=== PATIENT | female | born 1995 | race Caucasian/White ===

== ENCOUNTER → 2023-08-14 16:23 | Outpatient (REF) | payer OTHER, SELFPAY | LOC: RAD 16:23 | PROVIDERS: ATTENDING PHYSICIAN Otolaryngology; FAMILY PHYSICIAN Internal Medicine | DX: H93.A1 Pulsatile tinnitus, right ear (principal) | CPT/HCPCS: 70496; 70498; Q9967 ==

== ENCOUNTER → 2024-10-21 16:51 | Outpatient (REF) | payer OTHER, SELFPAY | LOC: PNTC 16:51 | PROVIDERS: ATTENDING PHYSICIAN Obstetrics & Gynecology | DX: O26.849 Uterine size-date discrepancy, unspecified trimester (principal) | CPT/HCPCS: 76805 ==

== ENCOUNTER → 2024-11-10 09:13 | Outpatient (REF) | payer OTHER, SELFPAY | LOC: PNTC 09:13 | PROVIDERS: ATTENDING PHYSICIAN Obstetrics & Gynecology | DX: Z36.3 Encounter for antenatal screening for malformations (principal); O35 Maternal care for known or suspected fetal abnormality and damage; Z36.86 Encounter for antenatal screening for cervical length; Z3A.21 21 weeks gestation of pregnancy | CPT/HCPCS: 76811; 76817 ==

== ENCOUNTER 2025-03-05 07:05 | Observation (INO) | payer OTHER, SELFPAY ==
[2025-03-05 07:13] VITALS: BP 95/59; BMI 34.8
== END 2025-03-05 08:21 | disposition home or self-care (01) ==
LOC: LDRP 07:05
PROVIDERS: ADMITTING PHYSICIAN Student in an Organized Health Care Education/Training Program
DX: O36.8130 Decreased fetal movements, third trimester, not applicable or unspecified (principal); Z3A.37 37 weeks gestation of pregnancy
CPT/HCPCS: 59025; G0378